=== PATIENT | male | born 1990 | race American Indian/Alaskan Native ===

== ENCOUNTER 2016-09-25 10:28 | Emergency (ER) | payer BC ==
[2016-09-25 10:57] VITALS: BP 140/98
[2016-09-25] MEDS ORDERED: NORCO 5/325 PO ONE ×2 (11:15→12:58)
[2016-09-25] MEDS ORDERED: BOOSTRIX IM ONE (11:15)
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
[2016-09-25] MEDS: XYLOCAINE 2% INFILTRATI ONE (11:46)
--- NOTE | 2016-09-25 12:56 | Cat Scan Report ---
CT scan of head without IV contrast: History: Trauma. Findings: Ventricles are normal in size and midline in location. No evidence of acute ischemia, hemorrhage or mass. No extra-axial fluid collection. Normal brainstem and cerebellum. There is suspected scalp hematoma left posterior parietal region. No fracture calvarium. Impression: No acute intracranial abnormality. Left scalp hematoma.
[2016-09-25] MEDS ORDERED: BACTRIM DS PO ONE (12:58)
== END 2016-09-25 13:09 | disposition home or self-care (01) ==
LOC: ED 10:28
DX: S09.90XA Unspecified injury of head, initial encounter (principal); S01.01XA Laceration without foreign body of scalp, initial encounter; S00.03XA Contusion of scalp, initial encounter; W19.XXXA Unspecified fall, initial encounter; Y93.89 Activity, other specified; Y99.9 Unspecified external cause status; Y92.89 Other specified places as the place of occurrence of the external cause
CPT/HCPCS: 70450; 90471; 90715

== ENCOUNTER 2016-10-02 07:40 | Emergency (ER) | payer BC ==
[2016-10-02 07:55] VITALS: BP 128/81
--- NOTE | 2016-10-02 09:06 | Emergency Department Report ---
Suture/Staple Removal - HPI Chief Complaint: Laceration/Recheck/Suture Stated Complaint: SUTURE REMOVAL Time Seen by Provider: 10/02/16 08:27 When Sutures or Satya Placed: 5-7 Days Ago Wound Location: L scalp ED Review of Systems ROS: Stated complaint: SUTURE REMOVAL Other details as noted in HPI Comment: All other systems reviewed and negative Constitutional: denies: fever Musculoskeletal: denies: back pain Skin: other (pt states he has 18 satya in his head. pt denies bleeding or drainage. pt states the site is still swollen. ) Neurological: other (scalp is tender to palpation ). denies: headache ED Past Medical Hx - Past Medical History Previous Medical History?: No - Surgical History Past Surgical History?: No - Social History Smoking Status: Never Smoker Substance Use Type: None - Medications Home Medications: Home Medications Medication Instructions Recorded Confirmed Last Taken Type Sulfamethoxazole/Trimethoprim 1 each PO BID #6 tablet 10/02/16 Unknown Rx [Bactrim DS TAB] Suture Removal Exam - Exam General: Vital signs noted. No distress. Alert and acting appropriately. Wound: Yes Tenderness, No Pathologic Erythema, No Drainage, No Pus, No Wound Dehiscence Other Systems: All other systems reviewed and are unremarkable. 17 satya to L scalp, + hematoma posteriorly ED Course Vital Signs 10/02/16 07:52 Temperature 97.7 F Pulse Rate 69 Respiratory 16 Rate Blood Pressure 128/81 O2 Sat by Pulse 97 Oximetry - Reevaluation(s) Reevaluation #1: 10/02/16 09:03 17 satya removed from L scalp. + small amount of purulent drainage. - Procedure Description Procedures done: staple removal. 17 satya removed from scalp. wounds remain intact. small amount of purulent drainage - Pulse Oximetry Interpretation Digit-Finger Initial Pulse Oximetry Readin Actions Taken: none ED Recheck MDM - Differential Diagnosis Suture/Staple Removal Critical Care Time: No Critical care attestation.: If time is entered above; I have spent that time in minutes in the direct care of this critically ill patient, excluding procedure time. ED Disposition Clinical Impression: Encounter for staple removal Scalp hematoma Qualifiers: Encounter type: subsequent encounter Qualified Code(s): S00.03XD - Contusion of scalp, subsequent encounter Disposition: - TO HOME OR SELFCARE Is pt being admited?: No Does the pt Need Aspirin: No Condition: Stable Instructions: Suture Removal (ED), Scalp Contusion in Adults (ED) Additional Instructions: I am prescribing your three additional days of antibiotics, for a total of a 10 day course. If you start having fevers, drainage from staple site or increase pain, return to the ED Otherwise follow up with PCP in 3-5 days Prescriptions: Sulfamethoxazole/Trimethoprim [Bactrim DS TAB] 1 each PO BID #6 tablet Referrals: PRIMARY CAREMD [Primary Care Provider] - 3-5 Days BLU ABARCA MD [Staff Physician] - 3-5 Days [facility] [Outside] - 3-5 Days Time of Disposition: 09:06
[2016-10-02] MEDS ORDERED: TRIPLE ANTIBIOTIC TP ONE (09:08)
== END 2016-10-02 09:20 | disposition home or self-care (01) ==
LOC: ED 07:40
DX: Z48.02 Encounter for removal of sutures (principal); S00.03XD Contusion of scalp, subsequent encounter
CPT/HCPCS: A6250